=== PATIENT | female | born 1965 | race Hispanic/Latino ===

== ENCOUNTER 2018-01-16 10:26 | Observation (INO) | payer MEDICAID ==
[2018-01-16] MEDS ORDERED: Sodium Chloride 0.9% 1,000 ML IV STA (10:58)
--- NOTE | 2018-01-16 11:35 | ED PDOC ---
Arrival/HPI - General Chief Complaint: Abdominal Pain Time Seen by Provider: 01/16/18 10:54 Historian: Patient - History of Present Illness Narrative History of Present Illness (Text): 01/16/18 11:34 52yo female with history of chronic back pain present with complaint of LUQ abdominal burning sharp pain.Notes taht pain started on her diffuse lower back yesterday and then progressed to her LUQ area. Notes that her back is just sore , but she is having more pain on her LUQ area. States she took Ibuprofen 800mg with mild relieve [id number]. Notes that she have not had back pain for a while now. +Hematuria this morning. She denies recent trauma, nausea, vomiting, diarrhea, constipation, melena, hematemesis, fever, chills, chest pain, SOB, any other complaint. Past Medical History - Provider Review Nursing Documentation Reviewed: Yes - Infectious Disease Hx of Infectious Diseases: None - Tetanus Immunization Tetanus Immunization: Unknown - Reproductive Menopause: Yes - Past Medical History Past Medical History: No Previous - Cardiac Hx Cardiac Disorders: No - Pulmonary Hx Respiratory Disorders: No - Neurological Hx Neurological Disorder: No - HEENT Hx HEENT Disorder: No - Renal Hx Renal Disorder: No - Endocrine/Metabolic Hx Endocrine Disorders: No - Hematological/Oncological Hx Blood Disorders: No - Integumentary Hx Dermatological Disorder: No - Musculoskeletal/Rheumatological Hx Musculoskeletal Disorders: Yes Hx Back Pain: Yes - Gastrointestinal Hx Gastrointestinal Disorders: No - Genitourinary/Gynecological Hx Genitourinary Disorders: No Hx Sexually Transmitted Diseases: No - Psychiatric Hx Psychophysiologic Disorder: No Hx Substance Use: No - Past Surgical History Past Surgical History: No Previous - Surgical History Other/Comment: BACK - Anesthesia Hx Anesthesia: No - Suicidal Assessment Feels Threatened In Home Enviroment: No Family/Social History - Physician Review Nursing Documentation Reviewed: Yes Family/Social History: Unknown Family HX Smoking Status: Heavy Smoker > 10 Cigarettes Daily Hx Alcohol Use: Yes Hx Substance Use: No Allergies/Home Meds Allergies/Adverse Reactions: Allergies No Known Allergies Allergy (Verified 01/16/18 10:31) Home Medications: Home Meds Medication Instructions Recorded Confirmed Venlafaxine [Effexor XR] 75 mg PO DAILY 01/16/18 01/16/18 Review of Systems - Physician Review All systems were reviewed & negative as marked: Yes - Review of Systems Constitutional: Normal Eyes: Normal ENT: Normal Respiratory: Normal Cardiovascular: Normal Gastrointestinal: Abdominal Pain. absent: Constipation, Diarrhea, Nausea, Vomiting, Hematochezia, Hematemesis Genitourinary Female: Hematuria. absent: Dysuria, Frequency Musculoskeletal: Back Pain Skin: Normal Neurological: Normal Endocrine: Normal Hemo/Lymphatic: Normal Psychiatric: Normal Physical Exam Vital Signs Reviewed: Yes Vital Signs Temp Pulse Resp BP Pulse Ox 01/16/18 13:45 97.8 F 67 16 126/80 98 01/16/18 10:36 97.8 F 78 16 134/89 97 Temperature: Afebrile Blood Pressure: Normal Pulse: Regular Respiratory Rate: Normal Appearance: Positive for: Well-Appearing, Non-Toxic, Comfortable Pain Distress: None Mental Status: Positive for: Alert and Oriented X 3 - Systems Exam Head: Present: Atraumatic, Normocephalic Pupils: Present: PERRL Extroacular Muscles: Present: EOMI Conjunctiva: Present: Normal Mouth: Present: Moist Mucous Membranes Neck: Present: Normal Range of Motion Respiratory/Chest: Present: Clear to Auscultation, Good Air Exchange. No: Respiratory Distress, Accessory Muscle Use Cardiovascular: Present: Regular Rate and Rhythm, Normal S1, S2. No: Murmurs Abdomen: Present: Tenderness (LUQ tenderness), Normal Bowel Sounds, Other (Soft) . No: Distention, Peritoneal Signs, Rebound, Guarding, McBurney's Point Tender , Rovsing's Sign Present Back: Present: CVA Tenderness (B/L CVAT), Paraspinal Tenderness (Diffuse paralumbar tenderness). No: Midline Tenderness, Pain with Leg Raise Upper Extremity: Present: Normal Inspection. No: Cyanosis, Edema Lower Extremity: Present: Normal Inspection. No: Edema Neurological: Present: GCS=15, CN II-XII Intact, Speech Normal Skin: Present: Warm, Dry, Normal Color. No: Rashes Psychiatric: Present: Alert, Oriented x 3, Normal Insight, Normal Concentration Medical Decision Making ED Course and Treatment: 01/16/18 13:59 PT in ED for stated history. She appear physically in pain in ED. Leukocytosis, with large leuk and WBC noted in her UA. she had b/l CVAT. Levaquin was ordered. She will be admitted secondary to her continuous pain and lab findings Case was DW Dr. Barton and he accepted pt for admission. - Lab Interpretations Lab Results: 01/16/18 12:00 01/16/18 12:00 Lab Results 01/16/18 12:00: Sodium 140, Potassium 3.9, Chloride 108 H, Carbon Dioxide 22, Anion Gap 13, BUN 17, Creatinine 0.7, Est GFR ( Amer) > 60, Est GFR (Non- Af Amer) > 60, Random Glucose 109, Calcium 9.3, Total Bilirubin 0.5, AST 20, ALT 33, Alkaline Phosphatase 71, Total Protein 6.4, Albumin 3.5, Globulin 3.0, Albumin/Globulin Ratio 1.2, Lipase 56 01/16/18 12:00: Urine Color Yellow, Urine Appearance Clear, Urine pH 6.0, Ur Specific [place] 1.025, Urine Protein Trace H, Urine Glucose (UA) Negative, Urine Ketones Negative, Urine Blood Large H, Urine Nitrate Negative, Urine Bilirubin Negative, Urine Urobilinogen 0.2, Ur Leukocyte Esterase Large H, Urine RBC 25 - 30, Urine WBC 25 - 30, Ur Epithelial Cells 4 - 5, Amorphous Sediment Few, Urine Bacteria Many, Fine Granular Casts 0 - 2, Urine Other [place]yeast 01/16/18 12:00: PT 10.5, INR 0.91 L, APTT 27.0 01/16/18 12:00: WBC 14.9 H, RBC 4.13, Hgb 12.6, Hct 38.4, MCV 93.0, MCH 30.5, MCHC 32.8, RDW 13.9, Plt Count 220, MPV 12.3 H, Gran % 74.3 H, Lymph % (Auto) 20.4 L, [place] % (Auto) 3.8, Eos % (Auto) 1.2 L, Baso % (Auto) 0.3, Gran # 11.05 H , Lymph # (Auto) 3.0, [place] # (Auto) 0.6, Eos # (Auto) 0.2, Baso # (Auto) 0.05 - RAD Interpretation Radiology Orders: 01/16/18 10:58 ABD & PELVIS W/O PO OR IV CONT [CT] Stat - Medication Orders Current Medication Orders: Levofloxacin/Dextrose (Levaquin 500mg) 500 mg in 100 mls @ 100 mls/hr IVPB STAT STA PRN Reason: Protocol Stop: 01/16/18 14:54 Discontinued Medications Famotidine (Pepcid) 20 mg IVP STAT STA Stop: 01/16/18 10:59 Last Admin: 01/16/18 11:58 Dose: 20 mg IVP Administration Document 01/16/18 11:58 OCS (Rec: 01/16/18 11:58 OCS [id number]) Charges for Administration # of IVP Administrations 1 Sodium Chloride (Sodium Chloride 0.9%) 1,000 mls @ 1,000 mls/hr IV .Q1H STA Stop: 01/16/18 11:57 Last Admin: 01/16/18 11:56 Dose: 1,000 mls/hr eMAR Start Stop Document 01/16/18 11:56 OCS (Rec: 01/16/18 11:57 OCS [id number]) Intravenous Solution Start Date 01/16/18 Start Time 11:56 End Date 01/16/18 End time 12:56 Total Infusion Time 60 Ketorolac Tromethamine (Toradol) 30 mg IVP STAT STA Stop: 01/16/18 10:59 Last Admin: 01/16/18 11:57 Dose: 30 mg MAR Pain Assessment Document 01/16/18 11:57 OCS (Rec: 01/16/18 11:58 OCS [id number]) Pain Reassessment Is this a pain reassessment? Yes Sleep Is patient sleeping during reassessment? No Presence of Pain Presence of Pain Yes Pain Scale Used Pain Scale Used Numeric Location Left, Right or Bilateral Bilateral Pain Location Body Site Abdomen Back Description Description Constant Intensity of Pain at present 10 Pain Behavior Moaning Crying Irritability Rubbing Site Facial Grimacing Aggravating Factors ADL's IVP Administration Document 01/16/18 11:57 OCS (Rec: 01/16/18 11:58 OCS [id number]) Charges for Administration # of IVP Administrations 1 Morphine Sulfate (Morphine) 4 mg IVP STAT STA Stop: 01/16/18 13:55 Disposition/Present on Arrival - Present on Arrival Any Indicators Present on Arrival: No History of DVT/PE: No History of Uncontrolled Diabetes: No Urinary Catheter: No History of Decub. Ulcer: No History Surgical Site Infection Following: None - Disposition Have Diagnosis and Disposition been Completed?: Yes Diagnosis: Pyelonephritis Disposition: HOSPITALIZED Disposition Time: 13:55 Patient Plan: Admission Patient Problems: Current Active Problems Problem Status Onset Pyelonephritis Acute Condition: FAIR Discharge Instructions (ExitCare): Urinary Tract Infections in Adults, Kidney Infection Forms: [facility] [facility] (Spanish)
[2018-01-16 12:23] LABS: BASO # 0.05 K/mm3 (0.0-2.0); BASO % 0.3 % (0.0-3.0); EOS # 0.2 (0.0-0.7); EOS % 1.2 % (1.5-5.0); GRAN # 11.05 (1.4-6.5); GRAN % 74.3 % (50.0-68.0); HEMOGLOBIN 12.6 g/dL (12.0-16.0); LYMPH % 20.4 % (22.0-35.0); MEAN CORPUSCULAR HEMOGLOBIN 30.5 pg (25.0-35.0); MEAN CORPUSCULAR HGB CONC 32.8 g/dl (31.0-37.0); MEAN PLATELET VOLUME 12.3 fl (7.0-11.0); MONO # 0.6 (0.1-0.6); MONO % 3.8 % (1.0-6.0); RBC 4.13 10^6/uL (3.5-6.1); RED CELL DISTRIBUTION WIDTH 13.9 % (11.5-14.5); WHITE BLOOD COUNT 14.9 10^3/ul (4.5-11.0)
[2018-01-16 12:24] LABS: URINE BILIRUBIN NEGATIVE (NEGATIVE); URINE BLOOD LARGE (NEGATIVE); URINE GLUCOSE (UA) NEGATIVE (NEGATIVE); URINE LEUKOCYTE ESTERASE LARGE Leu/uL (NEGATIVE); URINE PROTEIN TRACE mg/dL (<30 mg/dL); URINE UROBILINOGEN 0.2 E.U./dL (<1 E.U./dL)
[2018-01-16 12:28] LABS: URINE APPEARANCE CLEAR (CLEAR); URINE COLOR YELLOW (YELLOW)
[2018-01-16 12:34] LABS: ALB/GLOB RATIO 1.2 (1.1-1.8); ALBUMIN 3.5 g/dL (3.0-4.8); ALT/SGPT 33 U/L (7-56); AST/SGOT 20 U/L (14-36); BLOOD UREA NITROGEN 17 mg/dL (7-21); CALCIUM 9.3 mg/dL (8.4-10.5); GFR AFRICAN-AMERICAN > 60; GFR NON-AFRICAN AMERICAN > 60; LIPASE 56 U/L (23-300)
[2018-01-16 12:36] LABS: URINE RBC 25 - 30 /hpf (0-2); URINE WBC 25 - 30 /hpf (0-6)
[2018-01-16 12:37] LABS: URINE AMORPHOUS SEDIMENT FEW; URINE BACTERIA MANY (NEG); URINE FINE GRANULAR CAST 0 - 2 /hpf (0-2)
[2018-01-16 12:38] LABS: INR 0.91 (0.93-1.08); PROTHROMBIN TIME 10.5 SECONDS (9.4-12.5)
--- NOTE | 2018-01-16 13:38 | CT ---
PROCEDURE: CT Abdomen and Pelvis without intravenous contrast HISTORY: LUQ pain COMPARISON: None. TECHNIQUE: Without contrast.. Contrast Dose: Radiation dose: Total exam DLP = 1077 mGy-cm. This CT exam was performed using one or more of the following dose reduction techniques: Automated exposure control, adjustment of the mA and/or kV according to patient size, and/or use of iterative reconstruction technique. FINDINGS: LOWER THORAX: Unremarkable. LIVER: Unremarkable. No gross lesion or ductal dilatation. GALLBLADDER AND BILE DUCTS: Unremarkable. PANCREAS: Unremarkable. No gross lesion or ductal dilatation. SPLEEN: Unremarkable. ADRENALS: Unremarkable. No mass. KIDNEYS AND URETERS: Unremarkable. No hydronephrosis. No solid mass. VASCULATURE: Unremarkable. No aortic aneurysm. BOWEL: Unremarkable. No obstruction. No gross mural thickening. APPENDIX: Unremarkable. Normal appendix. PERITONEUM: Unremarkable. No free fluid. No free air. LYMPH NODES: Unremarkable. No enlarged lymph nodes. BLADDER: Unremarkable. REPRODUCTIVE: Unremarkable. BONES: No acute fracture. OTHER FINDINGS: None. IMPRESSION: No acute findings
[2018-01-16] MEDS ORDERED: Morphine 4 mg/ml ISec IVP STA (13:54)
[2018-01-16] MEDS ORDERED: levoFLOXacin 500 mg in D5W 500 MG/100 ML BAG IVPB STA (13:55)
--- NOTE | 2018-01-16 15:28 | CP.PCM.HP ---
<Rigo Quiroz - Last Filed: 01/16/18 15:13> History of Present Illness - History of Present Illness History of Present Illness: Ms. Persaud is a 52 year old female with a past medical history significant for tobacco use, chronic low back pain and post-menopausal hot flashes who presents with bilateral flank pain. Patient states that last week while resting she suddenly felt a pain in both of her flanks that resolved with ice pack administration and ibuprofen. Patient was pain free until earlier today when she started to experience a more severe pain in both of her flanks with radiation to the LUQ of the abdomen. Patient does not associate this pain with exertion, food intake or positional changes. She reports that this pain is different from her chronic back pain. She describes the pain as a sharp burning pain that is intermittent with episodes lasting 30 seconds to a minute. She also endorses one episode of pink to red urine earlier this morning. She reports moderate relief with ibuprofen and flexeril. She denies ever having this type of pain before in the past. She denies any fever, chills, headache, changes in her vision, neck pain/stiffness, chest pain, palpitations, leg swelling, SOB, cough, wheezing, sputum, N/V/D/C, urine/bowel incontinence, skin changes, numbness/tingling/weakness of any extremity, vaginal lesions, or any new sexual partners. PMH: Tobacco use, chronic low back pain and post-menopausal hot flashes PSH: Denies Family History: Denies any history cardiac disease or cancer Social History: Smokes half pack per week, drinks alcohol socially and denies any illicit drug use Allergies: NKDA Home Medications: Flexeril, Ibuprofen and Effexor Present on Admission - Present on Admission Any Indicators Present on Admission: No Review of Systems - Review of Systems Review of Systems: As per HPI, otherwise negative Past Patient History - Infectious Disease Hx of Infectious Diseases: None - Tetanus Immunizations Tetanus Immunization: Unknown - Past Social History Smoking Status: Heavy Smoker > 10 Cigarettes Daily - CARDIAC Hx Cardiac Disorders: No - PULMONARY Hx Respiratory Disorders: No - NEUROLOGICAL Hx Neurological Disorder: No - HEENT Hx HEENT Problems: No - RENAL Hx Chronic Kidney Disease: No - ENDOCRINE/METABOLIC Hx Endocrine Disorders: No - HEMATOLOGICAL/ONCOLOGICAL Hx Blood Disorders: No - INTEGUMENTARY Hx Dermatological Problems: No - MUSCULOSKELETAL/RHEUMATOLOGICAL Hx Musculoskeletal Disorders: Yes Hx Back Pain: Yes - GASTROINTESTINAL Hx Gastrointestinal Disorders: No - GENITOURINARY/GYNECOLOGICAL Hx Genitourinary Disorders: No Hx Sexually Transmitted Disorders: No - PSYCHIATRIC Hx Psychophysiologic Disorder: No Hx Substance Use: No - SURGICAL HISTORY Other/Comment: BACK - ANESTHESIA Hx Anesthesia: No Meds Allergies/Adverse Reactions: Allergies Allergy/AdvReac Type Severity Reaction Status Date / Time No Known Allergies Allergy Verified 01/16/18 10:31 Physical Exam - Constitutional Appears: Non-toxic - Head Exam Head Exam: ATRAUMATIC, NORMOCEPHALIC - Eye Exam Eye Exam: EOMI, PERRL Pupil Exam: NORMAL ACCOMODATION - ENT Exam ENT Exam: Mucous Membranes Moist, Normal Exam - Neck Exam Neck exam: Positive for: Full Rom. Negative for: Lymphadenopathy - Respiratory Exam Respiratory Exam: Clear to Auscultation Bilateral, NORMAL BREATHING PATTERN. absent: Rales, Rhonchi, Wheezes, Respiratory Distress - Cardiovascular Exam Cardiovascular Exam: REGULAR RHYTHM, RRR, +S1, +S2. absent: Bradycardia, Tachycardia - GI/Abdominal Exam GI & Abdominal Exam: Normal Bowel Sounds, Soft, Tenderness (LUQ TTP). absent: Distended, Firm, Guarding, Rigid - Extremities Exam Extremities exam: Positive for: full ROM, normal capillary refill, normal inspection, pedal pulses present. Negative for: calf tenderness, joint swelling , pedal edema, tenderness - Back Exam Back exam: CVA tenderness (L), CVA tenderness (R), paraspinal tenderness (Mid- thoracic). absent: muscle spasm, NORMAL INSPECTION, rash noted, vertebral tenderness - Neurological Exam Neurological exam: Alert, CN II-XII Intact, Oriented x3 - Psychiatric Exam Psychiatric exam: Normal Affect, Normal Mood - Skin Skin Exam: Dry, Intact, Normal Color, Warm Results - Vital Signs Recent Vital Signs: Last Vital Signs Temp 97.8 F 01/16/18 13:45 Pulse 67 01/16/18 13:45 Resp 16 01/16/18 13:45 BP 126/80 01/16/18 13:45 Pulse Ox 98 01/16/18 13:45 - Labs Result Diagrams: 01/16/18 12:00 01/16/18 12:00 Labs: Laboratory Results - last 24 hr 01/16/18 01/16/18 01/16/18 12:00 12:00 12:00 WBC 14.9 H RBC 4.13 Hgb 12.6 Hct 38.4 MCV 93.0 MCH 30.5 MCHC 32.8 RDW 13.9 Plt Count 220 MPV 12.3 H Gran % 74.3 H Lymph % (Auto) 20.4 L [place] % (Auto) 3.8 Eos % (Auto) 1.2 L Baso % (Auto) 0.3 Gran # 11.05 H Lymph # (Auto) 3.0 [place] # (Auto) 0.6 Eos # (Auto) 0.2 Baso # (Auto) 0.05 PT 10.5 INR 0.91 L APTT 27.0 Sodium Potassium Chloride Carbon Dioxide Anion Gap BUN Creatinine Est GFR ( Amer) Est GFR (Non-Af Amer) Random Glucose Calcium Total Bilirubin AST ALT Alkaline Phosphatase Total Protein Albumin Globulin Albumin/Globulin Ratio Lipase Urine Color Yellow Urine Appearance Clear Urine pH 6.0 Ur Specific [place] 1.025 Urine Protein Trace H Urine Glucose (UA) Negative Urine Ketones Negative Urine Blood Large H Urine Nitrate Negative Urine Bilirubin Negative Urine Urobilinogen 0.2 Ur Leukocyte Esterase Large H Urine RBC 25 - 30 Urine WBC 25 - 30 Ur Epithelial Cells 4 - 5 Amorphous Sediment Few Urine Bacteria Many Fine Granular Casts 0 - 2 Urine Other Uyeast 01/16/18 12:00 WBC RBC Hgb Hct MCV MCH MCHC RDW Plt Count MPV Gran % Lymph % (Auto) [place] % (Auto) Eos % (Auto) Baso % (Auto) Gran # Lymph # (Auto) [place] # (Auto) Eos # (Auto) Baso # (Auto) PT INR APTT Sodium 140 Potassium 3.9 Chloride 108 H Carbon Dioxide 22 Anion Gap 13 BUN 17 Creatinine 0.7 Est GFR ( Amer) > 60 Est GFR (Non-Af Amer) > 60 Random Glucose 109 Calcium 9.3 Total Bilirubin 0.5 AST 20 ALT 33 Alkaline Phosphatase 71 Total Protein 6.4 Albumin 3.5 Globulin 3.0 Albumin/Globulin Ratio 1.2 Lipase 56 Urine Color Urine Appearance Urine pH Ur Specific [place] Urine Protein Urine Glucose (UA) Urine Ketones Urine Blood Urine Nitrate Urine Bilirubin Urine Urobilinogen Ur Leukocyte Esterase Urine RBC Urine WBC Ur Epithelial Cells Amorphous Sediment Urine Bacteria Fine Granular Casts Urine Other Assessment & Plan - Assessment and Plan (Free Text) Assessment: 52 year old female with a past medical history significant for tobacco use, chronic low back pain and post-menopausal hot flashes who presents with bilateral flank pain. She was found to have a UTI on UA but with no acute findings on CT Abdomen/Pelvis indicating pyelonephritis or nephrolithiasis. Plan: 1. Urinary Tract Infection -CT Abdomen/Pelvis showing no acute abnormalities -UA showing large LE, many bacteria and 25-30 WBC's -Leukocytosis to 14.9 but afebrile and without tachycardia or tachypnea -EKG and urine cultures pending -IV Levaquin 500mg daily -Toradol 15mg IM Q6 PRN and Flexeril 5mg TID PRN for pain control -Zofran 4mg Q4 PRN for N/V -Tylenol 650mg Q6 PRN for fever -Daily CBC to trend leukocytosis 2. Post-Menopausal Hot Flashes -Continue home Effexor GI Prophylaxis: Protonix DVT Prophylaxis: SCD's Patient seen and case discussed with attending, Dr. Barton. - Date & Time Date: 01/16/18 Time: 15:33 Decision To Admit - Pt Status Changed To: Hospital Disposition Of: Observation - . Bed Request Type: Med/Surg <Jerilyn Barton - Last Filed: 01/16/18 16:16> Results - Vital Signs Recent Vital Signs: Last Vital Signs Temp 97.8 F 01/16/18 13:45 Pulse 67 01/16/18 13:45 Resp 16 01/16/18 13:45 BP 126/80 01/16/18 13:45 Pulse Ox 98 01/16/18 13:45 - Labs Result Diagrams: 01/16/18 12:00 01/16/18 12:00 Attending/Attestation - Attestation I have personally seen and examined this patient.: Yes I have fully participated in the care of the patient.: Yes I have reviewed all pertinent clinical information: Yes Notes (Text): 01/16/18 16:13 52 year old female with past medical history of chronic back pain who presents with complaint of bilateral flank pain. She is found to have leukocytosis and UTI. CT abd/pelvis however is not suggestive of pyelonephritis or nephrolithiasis. Continue with iv antibiotics for UTI. Ucx is pending. Continue with flexeral prn for back pain with trial of toradol prn. Jerilyn Barton MD Hospitalist.
[2018-01-16 21:58] VITALS: BMI 34.0
[2018-01-16] MEDS ORDERED: Influenza Vaccine 60 mcg/0.5 mL SYR (4YR UP) IM ONE (21:58)
[2018-01-16] MEDS ORDERED: Pneumococcal 23-Valent Vaccine IM ONE (21:58)
[2018-01-17] MEDS: Pantoprazole 40 mg EC Tab PO SCH (05:38)
[2018-01-17 06:38] LABS: BASO # 0.03 K/mm3 (0.0-2.0); BASO % 0.3 % (0.0-3.0); EOS # 0.2 (0.0-0.7); EOS % 2.2 % (1.5-5.0); GRAN # 4.68 (1.4-6.5); GRAN % 48.6 % (50.0-68.0); HEMOGLOBIN 11.7 g/dL (12.0-16.0); LYMPH # 4.1 (1.2-3.4); LYMPH % 42.4 % (22.0-35.0); MEAN CELL VOLUME 93.4 fl (80.0-105.0); MEAN CORPUSCULAR HEMOGLOBIN 30.7 pg (25.0-35.0); MEAN CORPUSCULAR HGB CONC 32.9 g/dl (31.0-37.0); MEAN PLATELET VOLUME 12.5 fl (7.0-11.0); MONO # 0.6 (0.1-0.6); MONO % 6.5 % (1.0-6.0); RBC 3.81 10^6/uL (3.5-6.1); WHITE BLOOD COUNT 9.6 10^3/ul (4.5-11.0)
[2018-01-17 07:19] LABS: ALB/GLOB RATIO 1.1 (1.1-1.8); ALT/SGPT 27 U/L (7-56); AST/SGOT 23 U/L (14-36); BLOOD UREA NITROGEN 20 mg/dL (7-21); GFR AFRICAN-AMERICAN > 60; GFR NON-AFRICAN AMERICAN > 60
--- NOTE | 2018-01-17 08:37 | CARD ---
APPROVED REPORT EKG Measurement Heart [id number] <Conclusion> Normal sinus rhythm Normal ECG
[2018-01-17] MEDS: Venlafaxine 75 mg ER Cap PO SCH (09:45)
[2018-01-17] MEDS: levoFLOXacin 500 mg in D5W 500 MG/100 ML BAG IVPB SCH (09:46)
--- NOTE | 2018-01-17 12:58 | CP.PCM.PN ---
<RichieRigo - Last Filed: 01/17/18 12:53> Subjective - Date & Time of Evaluation Date of Evaluation: 01/17/18 Time of Evaluation: 12:53 - Subjective Subjective: Medicine Progress Note: Patient seen and assessed at bedside. No acute events were noted overnight by patient or nursing staff. Patient reports that she continues to have LUQ pain that she describes as a burning sensation. She reports that this has not improved since admission. She denies any pain with urination but does report an orgasmic feeling with urination, describing this a pleasurable sensation with associated tingling in her back. Patient has no other complaints otherwise including fevers, chills, headache, chest pain, palpitations, SOB, cough, wheezing, sputum, N/V/D/C, hematuria, pyuria, skin changes or any numbness/ tingling/weakness of any extremity. Objective - Vital Signs/Intake and Output Vital Signs (last 24 hours): Temp Pulse Resp BP Pulse Ox 97.8 F 70 18 134/85 99 01/16/18 21:36 01/16/18 21:36 01/16/18 21:36 01/16/18 21:36 01/16/18 17:17 Intake and Output: 01/17/18 01/17/18 06:59 18:59 Intake Total 960 Balance 960 - Medications Medications: Current Medications Acetaminophen (Tylenol 325mg Tab) 650 mg PO Q6H PRN PRN Reason: Fever >100.4 F Cyclobenzaprine HCl (Flexeril) 5 mg PO TID PRN PRN Reason: Pain, Mild (1-3) Last Admin: 01/16/18 17:42 Dose: 5 mg Levofloxacin/Dextrose (Levaquin 500mg) 500 mg in 100 mls @ 100 mls/hr IVPB DAILY [facility] PRN Reason: Protocol Last Admin: 01/17/18 09:46 Dose: 100 mls/hr Pantoprazole Sodium (Protonix Ec Tab) 40 mg PO 0600 [facility] Last Admin: 01/17/18 05:38 Dose: 40 mg Tramadol HCl (Ultram) 50 mg PO TID PRN PRN Reason: Pain, Mild (1-3) Venlafaxine HCl (Effexor Xr) 75 mg PO DAILY [facility] Last Admin: 01/17/18 09:45 Dose: 75 mg - Labs Labs: 02/28/18 05:45 01/17/18 05:45 PT 10.5 SECONDS (9.4-12.5) 01/16/18 12:00 INR 0.91 (0.93-1.08) L 01/16/18 12:00 APTT 27.0 Seconds (25.1-36.5) 01/16/18 12:00 - Constitutional Appears: Non-toxic, No Acute Distress - Head Exam Head Exam: ATRAUMATIC, NORMOCEPHALIC - Eye Exam Eye Exam: EOMI, PERRL Pupil Exam: NORMAL ACCOMODATION - ENT Exam ENT Exam: Mucous Membranes Moist - Neck Exam Neck Exam: Full ROM. absent: Lymphadenopathy - Respiratory Exam Respiratory Exam: Clear to Ausculation Bilateral, NORMAL BREATHING PATTERN. absent: Accessory Muscle Use, Rales, Rhonchi, Wheezes, Respiratory Distress - Cardiovascular Exam Cardiovascular Exam: REGULAR RHYTHM, RRR, +S1, +S2. absent: Tachycardia - GI/Abdominal Exam GI & Abdominal Exam: Guarding, Soft, Tenderness (TTP in LUQ), Normal Bowel Sounds. absent: Distended, Firm, Rebound - Extremities Exam Extremities Exam: Full ROM, Normal Capillary Refill. absent: Calf Tenderness, Joint Swelling, Pedal Edema, Tenderness - Back Exam Back Exam: CVA tenderness (L), CVA tenderness (R). absent: NORMAL INSPECTION - Neurological Exam Neurological Exam: Alert, Awake, CN II-XII Intact, Oriented x3 - Psychiatric Exam Psychiatric exam: Normal Affect, Normal Mood - Skin Skin Exam: Dry, Intact, Normal Color, Warm Assessment and Plan - Assessment and Plan (Free Text) Assessment: 52 year old female with a past medical history significant for tobacco use, chronic low back pain and post-menopausal hot flashes who presents with bilateral flank pain. She was found to have a UTI on UA but with no acute findings on CT Abdomen/Pelvis indicating pyelonephritis or nephrolithiasis. Patient was started on IV Levaquin and her leukocytosis has since resolved. Patient continues to endorse LUQ pain that is not typically associated with UTI. GI was consulted to further evaluate for gastrointestinal origin of this pain. Plan: 1. Urinary Tract Infection -CT Abdomen/Pelvis showing no acute abnormalities -UA showing large LE, many bacteria and 25-30 WBC's -Continue IV Levaquin 500mg daily (Day 2) -Tramadol 50mg PO TID PRN and Flexeril 5mg TID PRN for pain control -Zofran 4mg Q4 PRN for N/V -Tylenol 650mg Q6 PRN for fever -Daily CBC to trend leukocytosis 2. LUQ Pain -EKG showing normal sinus rhythm -Lipase within normal limits -Discontinue NSAID's for pain control -Continue pain control as above -GI consulted, all recommendations appreciated 3. Post-Menopausal Hot Flashes -Continue home Effexor GI Prophylaxis: Protonix DVT Prophylaxis: SCD's Diet: Heart Healthy Patient seen and case discussed with attending, Dr. Barton. <Jerilyn Barton - Last Filed: 01/17/18 15:27> Objective - Vital Signs/Intake and Output Vital Signs (last 24 hours): Temp Pulse Resp BP Pulse Ox 97.7 F 68 20 127/81 97 01/17/18 06:00 01/17/18 06:00 01/17/18 06:00 01/17/18 06:00 01/17/18 06:00 Intake and Output: 01/17/18 01/17/18 06:59 18:59 Intake Total 960 Balance 960 - Medications Medications: Current Medications Acetaminophen (Tylenol 325mg Tab) 650 mg PO Q6H PRN PRN Reason: Fever >100.4 F Cyclobenzaprine HCl (Flexeril) 5 mg PO TID PRN PRN Reason: Pain, Mild (1-3) Last Admin: 01/16/18 17:42 Dose: 5 mg Docusate Sodium (Colace) 100 mg PO DAILY [facility] Last Admin: 01/17/18 15:21 Dose: 100 mg Levofloxacin/Dextrose (Levaquin 500mg) 500 mg in 100 mls @ 100 mls/hr IVPB DAILY [facility] PRN Reason: Protocol Last Admin: 01/17/18 09:46 Dose: 100 mls/hr Pantoprazole Sodium (Protonix Ec Tab) 40 mg PO 0600 [facility] Last Admin: 01/17/18 05:38 Dose: 40 mg Tramadol HCl (Ultram) 50 mg PO TID PRN PRN Reason: Pain, Mild (1-3) Last Admin: 01/17/18 15:21 Dose: 50 mg Venlafaxine HCl (Effexor Xr) 75 mg PO DAILY [facility] Last Admin: 01/17/18 09:45 Dose: 75 mg - Labs Labs: 01/17/18 05:45 01/17/18 05:45 PT 10.5 SECONDS (9.4-12.5) 01/16/18 12:00 INR 0.91 (0.93-1.08) L 01/16/18 12:00 APTT 27.0 Seconds (25.1-36.5) 01/16/18 12:00 Attending/Attestation - Attestation I have personally seen and examined this patient.: Yes I have fully participated in the care of the patient.: Yes I have reviewed all pertinent clinical information, including history, physical exam and plan: Yes Notes (Text): 01/17/18 15:24 52 year old female with past medical history of chronic back pain who presented with complaint of bilateral flank pain. CT abd/pelvis was not suggestive of pyelonephritis or nephrolithiasis. Ucx is pending. She was found to have leukocytosis and UTI and started on iv antibiotics, toradol and flexeral with improvement of symptoms. Today she continues to have significant left upper quadrant pain. ?Gastritis. Will switch toradol prn for tramadol. Continue with protonix. GI evaluation is requested to consider upper endoscopy. Jerilyn Barton MD Hospitalist.
--- NOTE | 2018-01-17 16:53 | CP.PCM.CON ---
<Gokul Marin - Last Filed: 01/17/18 16:48> History of Present Illness - History of Present Illness History of Present Illness: GI Consult Note - Dr. Brandon HPI: 52 F with a PMHx of chronic low back pain and tobacco abuse that presented to [facility] with complaints of bilateral flank pain and LUQ abdominal pain. Pt states that she often uses ibuprofen for pain relief, sometimes taking 3-5 a week of 800mg a week. Patient does not associate this pain with exertion, food intake or positional changes. Pt described her pain as an intermittent sharp burning pain that has no aggravating factors and is alleviated with ibuprofen and flexeril. Pt was seen and examined at bedside. Pt has been moving bowels and bladder regularly, tolerating po intake. Pt denied fevers, chills, headache , chest pain, palpitations, SOB, cough, wheezing, sputum, N/V/D/C, hematuria, pyuria, skin changes or any numbness/tingling/weakness of any extremity. PMHx: Tobacco use, chronic low back pain and post-menopausal hot flashes PSHx: Denies Family History: Denies any history cardiac disease or cancer Social History: Smokes half pack per week, drinks alcohol socially and denies any illicit drug use Allergies: NKDA Home Medications: Flexeril, Ibuprofen and Effexor Review of Systems - Review of Systems Review of Systems: as per HPI otherwise negative Past Patient History - Infectious Disease Hx of Infectious Diseases: None - Tetanus Immunizations Tetanus Immunization: Unknown - Past Social History Smoking Status: Current Some Days Smoker - CARDIAC Hx Cardiac Disorders: No - PULMONARY Hx Respiratory Disorders: Yes (SMOKES HALF A PACK A WEEK OF CIGARETTES) - NEUROLOGICAL Hx Neurological Disorder: No - HEENT Hx HEENT Problems: No - RENAL Hx Chronic Kidney Disease: Yes Hx Pyelonephritis: Yes (01-16-18) - ENDOCRINE/METABOLIC Hx Endocrine Disorders: No - HEMATOLOGICAL/ONCOLOGICAL Hx Blood Disorders: No - INTEGUMENTARY Hx Dermatological Problems: No - MUSCULOSKELETAL/RHEUMATOLOGICAL Hx Musculoskeletal Disorders: Yes (SCIATICA) Hx Back Pain: Yes Hx Falls: No - GASTROINTESTINAL Hx Gastrointestinal Disorders: No - GENITOURINARY/GYNECOLOGICAL Hx Genitourinary Disorders: Yes Hx Sexually Transmitted Disorders: No Hx Urinary Tract Infection: Yes (01-16-18) - PSYCHIATRIC Hx Psychophysiologic Disorder: No Hx Substance Use: No - SURGICAL HISTORY Hx Surgeries: Yes (DISCKECTOMY X2) Other/Comment: BACK - ANESTHESIA Hx Anesthesia: No Meds Allergies/Adverse Reactions: Allergies Allergy/AdvReac Type Severity Reaction Status Date / Time No Known Allergies Allergy Verified 01/16/18 18:34 - Medications Medications: Current Medications Acetaminophen (Tylenol 325mg Tab) 650 mg PO Q6H PRN PRN Reason: Fever >100.4 F Cyclobenzaprine HCl (Flexeril) 5 mg PO TID PRN PRN Reason: Pain, Mild (1-3) Last Admin: 01/16/18 17:42 Dose: 5 mg Diphenhydramine HCl (Benadryl) 25 mg PO HS PRN PRN Reason: Insomnia Docusate Sodium (Colace) 100 mg PO DAILY [facility] Last Admin: 01/17/18 15:21 Dose: 100 mg Levofloxacin/Dextrose (Levaquin 500mg) 500 mg in 100 mls @ 100 mls/hr IVPB DAILY [facility] PRN Reason: Protocol Last Admin: 01/17/18 09:46 Dose: 100 mls/hr Pantoprazole Sodium (Protonix Ec Tab) 40 mg PO 0600 [facility] Last Admin: 01/17/18 05:38 Dose: 40 mg Tramadol HCl (Ultram) 50 mg PO TID PRN PRN Reason: Pain, Mild (1-3) Last Admin: 01/17/18 15:21 Dose: 50 mg Venlafaxine HCl (Effexor Xr) 75 mg PO DAILY [facility] Last Admin: 01/17/18 09:45 Dose: 75 mg Physical Exam - Constitutional Appears: No Acute Distress - Head Exam Head Exam: ATRAUMATIC, NORMAL INSPECTION, NORMOCEPHALIC - Eye Exam Eye Exam: EOMI, Normal appearance, PERRL - ENT Exam ENT Exam: Mucous Membranes Moist, Normal Exam - Respiratory Exam Respiratory Exam: Clear to Auscultation Bilateral, NORMAL BREATHING PATTERN - Cardiovascular Exam Cardiovascular Exam: REGULAR RHYTHM - GI/Abdominal Exam GI & Abdominal Exam: Normal Bowel Sounds, Soft, Tenderness Additional comments: LUQ tenderness to palpation - Back Exam Back exam: CVA tenderness (L), CVA tenderness (R) - Neurological Exam Neurological exam: Alert, CN II-XII Intact, Normal Gait, Oriented x3, Reflexes Normal - Psychiatric Exam Psychiatric exam: Normal Affect, Normal Mood - Skin Skin Exam: Dry, Intact, Normal Color, Warm Results - Vital Signs Recent Vital Signs: Last Vital Signs Temp 97.7 F 01/17/18 06:00 Pulse 68 01/17/18 06:00 Resp 20 01/17/18 06:00 BP 127/81 01/17/18 06:00 Pulse Ox 97 01/17/18 06:00 - Labs Result Diagrams: 01/17/18 05:45 01/17/18 05:45 Labs: Laboratory Results - last 24 hr 01/17/18 01/17/18 05:45 05:45 WBC 9.6 D RBC 3.81 Hgb 11.7 L Hct 35.6 L MCV 93.4 MCH 30.7 MCHC 32.9 RDW 14.0 Plt Count 204 MPV 12.5 H Gran % 48.6 L Lymph % (Auto) 42.4 H [place] % (Auto) 6.5 H Eos % (Auto) 2.2 Baso % (Auto) 0.3 Gran # 4.68 Lymph # (Auto) 4.1 H [place] # (Auto) 0.6 Eos # (Auto) 0.2 Baso # (Auto) 0.03 Sodium 139 Potassium 3.7 Chloride 110 H Carbon Dioxide 25 Anion Gap 8 L BUN 20 Creatinine 0.7 Est GFR ( Amer) > 60 Est GFR (Non-Af Amer) > 60 Random Glucose 118 H Calcium 9.0 Total Bilirubin 0.2 AST 23 ALT 27 Alkaline Phosphatase 65 Total Protein 5.6 L Albumin 3.0 Globulin 2.6 Albumin/Globulin Ratio 1.1 Assessment & Plan - Assessment and Plan (Free Text) Assessment: 52 F with a PMHx of chronic low back pain and tobacco abuse presented to [facility] with complaints of LUQ abdominal pain. UTI on levaquin CT Abdomen/Pelvis indicating pyelonephritis or nephrolithiasis. US ABD to assess LUQ pain, likely 2/2 NSAID use Avoid NSAIDs Continue PPI Possible EGD in AM NPO after midnight Discussed with Dr. Brandon <Augustin Brandon V - Last Filed: 01/17/18 23:47> Meds - Medications Medications: Current Medications Acetaminophen (Tylenol 325mg Tab) 650 mg PO Q6H PRN PRN Reason: Fever >100.4 F Cyclobenzaprine HCl (Flexeril) 5 mg PO TID PRN PRN Reason: Pain, Mild (1-3) Last Admin: 01/16/18 17:42 Dose: 5 mg Diphenhydramine HCl (Benadryl) 25 mg PO HS PRN PRN Reason: Insomnia Docusate Sodium (Colace) 100 mg PO DAILY [facility] Last Admin: 01/17/18 15:21 Dose: 100 mg Levofloxacin/Dextrose (Levaquin 500mg) 500 mg in 100 mls @ 100 mls/hr IVPB DAILY [facility] PRN Reason: Protocol Last Admin: 01/17/18 09:46 Dose: 100 mls/hr Pantoprazole Sodium (Protonix Ec Tab) 40 mg PO 0600 [facility] Last Admin: 01/17/18 05:38 Dose: 40 mg Tramadol HCl (Ultram) 50 mg PO TID PRN PRN Reason: Pain, Mild (1-3) Last Admin: 01/17/18 15:21 Dose: 50 mg Venlafaxine HCl (Effexor Xr) 75 mg PO DAILY [facility] Last Admin: 01/17/18 09:45 Dose: 75 mg Results - Vital Signs Recent Vital Signs: Last Vital Signs Temp 98.2 F 01/17/18 16:00 Pulse 61 01/17/18 16:00 Resp 18 01/17/18 16:00 BP 120/73 01/17/18 16:00 Pulse Ox 99 01/17/18 16:00 - Labs Result Diagrams: 01/17/18 05:45 01/17/18 05:45 Labs: Laboratory Results - last 24 hr 01/17/18 01/17/18 05:45 05:45 WBC 9.6 D RBC 3.81 Hgb 11.7 L Hct 35.6 L MCV 93.4 MCH 30.7 MCHC 32.9 RDW 14.0 Plt Count 204 MPV 12.5 H Gran % 48.6 L Lymph % (Auto) 42.4 H [place] % (Auto) 6.5 H Eos % (Auto) 2.2 Baso % (Auto) 0.3 Gran # 4.68 Lymph # (Auto) 4.1 H [place] # (Auto) 0.6 Eos # (Auto) 0.2 Baso # (Auto) 0.03 Sodium 139 Potassium 3.7 Chloride 110 H Carbon Dioxide 25 Anion Gap 8 L BUN 20 Creatinine 0.7 Est GFR ( Amer) > 60 Est GFR (Non-Af Amer) > 60 Random Glucose 118 H Calcium 9.0 Total Bilirubin 0.2 AST 23 ALT 27 Alkaline Phosphatase 65 Total Protein 5.6 L Albumin 3.0 Globulin 2.6 Albumin/Globulin Ratio 1.1 Attending/Attestation - Attestation I have personally seen and examined this patient.: Yes I have fully participated in the care of the patient.: Yes I have reviewed all pertinent clinical information: Yes Notes (Text): This is an addendum to GI consult report dictated by the Scientologist.The patient was seen and examined earlier. Medical records, lab studies, imagings were reviewed. Last 24 hours events reviewed. Agreed with the above treatment plan as outlined in Scientologist 's notes the with the addition of the following On examination tenderness epigastric are in addition to flank tenderness history of NSAID use Patient would benefit from endoscopic evaluation to rule out peptic ulcer disease Discussed with the patient and patient's boyfriend was at bedside and would schedule the patient in the a.m. for EGD 01/17/18 23:41 01/17/18 23:46
--- NOTE | 2018-01-17 21:39 | US ---
EXAM: US Abdomen Complete CLINICAL HISTORY: 52 years old, female; Pain; Abdominal pain; Flank; Left upper quadrant (luq); Additional info: Luq pain, gastritis TECHNIQUE: Real-time ultrasound of the abdomen (complete) with image documentation. COMPARISON: CT - ABD PELVIS W/O PO OR IV CONT 2018-01-16 13:15 FINDINGS: Liver: Fatty infiltration. No mass. No intrahepatic ductal dilatation. Gallbladder: No gallstones. No wall thickening. No pericholecystic fluid. No sonographic Morgan's sign. Common bile duct: No dilatation. No stones. Pancreas: Unremarkable as visualized. Kidneys: Normal echogenicity. No hydronephrosis. Spleen: No splenomegaly. Aorta: Unremarkable. No aneurysm. Inferior vena cava: Unremarkable. Free fluid: No significant free fluid. IMPRESSION: 1.No acute findings. 2.Non-acute findings are described above.
[2018-01-18] MEDS: Pantoprazole 40 mg EC Tab PO SCH (05:04)
[2018-01-18] MEDS ORDERED: Propofol 10 mg/ml Inj (20 ML) ONE (09:01)
[2018-01-18] MEDS ORDERED: Sodium Chloride 0.9% 1,000 ML IV SCH (09:30)
[2018-01-18] MEDS: Venlafaxine 75 mg ER Cap PO SCH (09:35)
[2018-01-18] MEDS: levoFLOXacin 500 mg in D5W 500 MG/100 ML BAG IVPB SCH (09:35)
[2018-01-18 09:40] VITALS: RESP 14; TEMP 98
[2018-01-18 09:59] VITALS: O2SAT 99
[2018-01-18 10:01] VITALS: BP 124/82; PULSE 66
--- NOTE | 2018-01-18 19:14 | CP.PCM.DIS ---
<Rigo Quiroz - Last Filed: 01/18/18 19:09> Provider - Provider Date of Admission: 01/16/18 15:04 Attending physician: Jerilyn Barton MD Consults: RONEN: Aleksandr Time Spent in preparation of Discharge (in minutes): 41 Hospital Course - Lab Results Lab Results: Most Recent Lab Values WBC 9.6 10^3/ul (4.5-11.0) D 01/17/18 05:45 RBC 3.81 10^6/uL (3.5-6.1) 01/17/18 05:45 Hgb 11.7 g/dL (12.0-16.0) L 01/17/18 05:45 Hct 35.6 % (36.0-48.0) L 01/17/18 05:45 MCV 93.4 fl (80.0-105.0) 01/17/18 05:45 MCH 30.7 pg (25.0-35.0) 01/17/18 05:45 MCHC 32.9 g/dl (31.0-37.0) 01/17/18 05:45 RDW 14.0 % (11.5-14.5) 01/17/18 05:45 Plt Count 204 10^3/uL (120.0-450.0) 01/17/18 05:45 MPV 12.5 fl (7.0-11.0) H 01/17/18 05:45 Gran % 48.6 % (50.0-68.0) L 01/17/18 05:45 Lymph % (Auto) 42.4 % (22.0-35.0) H 01/17/18 05:45 [place] % (Auto) 6.5 % (1.0-6.0) H 01/17/18 05:45 Eos % (Auto) 2.2 % (1.5-5.0) 01/17/18 05:45 Baso % (Auto) 0.3 % (0.0-3.0) 01/17/18 05:45 Gran # 4.68 (1.4-6.5) 01/17/18 05:45 Lymph # (Auto) 4.1 (1.2-3.4) H 01/17/18 05:45 [place] # (Auto) 0.6 (0.1-0.6) 01/17/18 05:45 Eos # (Auto) 0.2 (0.0-0.7) 01/17/18 05:45 Baso # (Auto) 0.03 K/mm3 (0.0-2.0) 01/17/18 05:45 PT 10.5 SECONDS (9.4-12.5) 01/16/18 12:00 INR 0.91 (0.93-1.08) L 01/16/18 12:00 APTT 27.0 Seconds (25.1-36.5) 01/16/18 12:00 Sodium 139 mmol/L (132-148) 01/17/18 05:45 Potassium 3.7 mmol/L (3.6-5.0) 01/17/18 05:45 Chloride 110 mmol/L (98-107) H 01/17/18 05:45 Carbon Dioxide 25 mmol/L (21-33) 01/17/18 05:45 Anion Gap 8 (10-20) L 01/17/18 05:45 BUN 20 mg/dL (7-21) 01/17/18 05:45 Creatinine 0.7 mg/dl (0.7-1.2) 01/17/18 05:45 Est GFR ( Amer) > 60 01/17/18 05:45 Est GFR (Non-Af Amer) > 60 01/17/18 05:45 Random Glucose 118 mg/dL (70-110) H 01/17/18 05:45 Calcium 9.0 mg/dL (8.4-10.5) 01/17/18 05:45 Total Bilirubin 0.2 mg/dL (0.2-1.3) 01/17/18 05:45 AST 23 U/L (14-36) 01/17/18 05:45 ALT 27 U/L (7-56) 01/17/18 05:45 Alkaline Phosphatase 65 U/L (38-126) 01/17/18 05:45 Total Protein 5.6 g/dL (5.8-8.3) L 01/17/18 05:45 Albumin 3.0 g/dL (3.0-4.8) 01/17/18 05:45 Globulin 2.6 gm/dL 01/17/18 05:45 Albumin/Globulin Ratio 1.1 (1.1-1.8) 01/17/18 05:45 Lipase 56 U/L (23-300) 01/16/18 12:00 Urine Color Yellow (YELLOW) 01/16/18 12:00 Urine Appearance Clear (CLEAR) 01/16/18 12:00 Urine pH 6.0 (4.7-8.0) 01/16/18 12:00 Ur Specific [place] 1.025 (1.005-1.035) 01/16/18 12:00 Urine Protein Trace mg/dL (<30 mg/dL) H 01/16/18 12:00 Urine Glucose (UA) Negative mg/dL (NEGATIVE) 01/16/18 12:00 Urine Ketones Negative mg/dL (NEGATIVE) 01/16/18 12:00 Urine Blood Large (NEGATIVE) H 01/16/18 12:00 Urine Nitrate Negative (NEGATIVE) 01/16/18 12:00 Urine Bilirubin Negative (NEGATIVE) 01/16/18 12:00 Urine Urobilinogen 0.2 E.U./dL (<1 E.U./dL) 01/16/18 12:00 Ur Leukocyte Esterase Large [place]/uL (NEGATIVE) H 01/16/18 12:00 Urine RBC 25 - 30 /hpf (0-2) 01/16/18 12:00 Urine WBC 25 - 30 /hpf (0-6) 01/16/18 12:00 Ur Epithelial Cells 4 - 5 /hpf (0-5) 01/16/18 12:00 Amorphous Sediment Few 01/16/18 12:00 Urine Bacteria Many (NEG) 01/16/18 12:00 Fine Granular Casts 0 - 2 /hpf (0-2) 01/16/18 12:00 Urine Other Uyeast 01/16/18 12:00 - Hospital Course Hospital Course: 52 year old female with a past medical history significant for tobacco use, chronic low back pain and post-menopausal hot flashes who presents with bilateral flank pain. She was found to have a UTI on UA but with no acute findings on CT Abdomen/Pelvis indicating pyelonephritis or nephrolithiasis. She was also noted to have a leukocytosis on CBC. Patient was started on IV Levaquin and her leukocytosis resolved. Patient continues to endorse LUQ pain that is not typically associated with UTI. GI was consulted to further evaluate for gastrointestinal origin of this pain. She had an abdominal ultrasound that was negative for any acute findings. She was taken for EGD which found esophagitis, gastritis and hiatal hernia. She was discharged home on 01/18/2018 with instructions as follows: Please follow up with your primary care doctor within one to two weeks for post hospitalization follow up. Please complete a 4 day course of Levaquin. Information has been provided about this medication. You have been started on a medication called Protonix, which will help protect the lining of your stomach. Information has been provided about this medication. Biopsies have been taken from the lining of your stomach to evaluate the presence of a bacteria that can cause gastritis. The results will be available within several days. You should be contacted by the [facility] [place] with results if they are abnormal. Please avoid taking NSAID's for pain relief. Medications such as Tylenol are appropriate for pain control. Should you have any questions regarding a medication for pain relief, please seek consultation from the pharmacist. Recommendations and information for a diet to prevent gastritis has been provided. Please take all medications as prescribed. If your symptoms should worsen or persist, please seek emergency medical attention. - Date & Time of H&P Date of H&P: 02/13/18 Time of H&P: 15:13 Discharge Exam - Head Exam Head Exam: ATRAUMATIC, NORMAL INSPECTION, NORMOCEPHALIC - Eye Exam Eye Exam: EOMI, PERRL Pupil Exam: NORMAL ACCOMODATION - ENT Exam ENT Exam: Mucous Membranes Moist, Normal Exam - Neck Exam Neck exam: Full Rom, Normal Inspection - Respiratory Exam Respiratory Exam: Clear to PA & Lateral, NORMAL BREATHING PATTERN, UNREMARKABLE - Cardiovascular Exam Cardiovascular Exam: REGULAR RHYTHM - GI/Abdominal Exam GI & Abdominal Exam: Normal Bowel Sounds, Tenderness (Minimal TTP in LUQ), Unremarkable - Extremities Exam Extremities exam: full ROM, normal capillary refill, normal inspection, pedal pulses present - Back Exam Back exam: NORMAL INSPECTION - Neurological Exam Neurological exam: Alert, CN II-XII Intact, Normal Gait, Oriented x3, Reflexes Normal - Psychiatric Exam Psychiatric exam: Normal Affect, Normal Mood - Skin Skin Exam: Dry, Intact, Normal Color, Warm Discharge Plan - Discharge Medications Prescriptions: levoFLOXacin [Levaquin] 500 mg PO DAILY #4 tab Pantoprazole [Protonix EC Tab] 40 mg PO DAILY #14 ect - Follow Up Plan Condition: FAIR Disposition: HOME/ ROUTINE Instructions: Gastric Ulcer (DC), Levofloxacin (Systemic), Pantoprazole, Ulcer and Gastritis Diet, Urinary Tract Infection in Women (DC) Additional Instructions: Please follow up with your primary care doctor within one to two weeks for post hospitalization follow up. Please complete a 4 day course of Levaquin. Information has been provided about this medication. You have been started on a medication called Protonix, which will help protect the lining of your stomach. Information has been provided about this medication. Biopsies have been taken from the lining of your stomach to evaluate the presence of a bacteria that can cause gastritis. The results will be available within several days. You should be contacted by the [facility] [place] with results if they are abnormal. Please avoid taking NSAID's for pain relief. Medications such as Tylenol are appropriate for pain control. Should you have any questions regarding a medication for pain relief, please seek consultation from the pharmacist. Recommendations and information for a diet to prevent gastritis has been provided. Please take all medications as prescribed. If your symptoms should worsen or persist, please seek emergency medical attention. Referrals: Augustin Brandon MD [Medical Doctor] - <Jerilyn Barton - Last Filed: 01/18/18 21:27> Provider - Provider Date of Admission: 01/16/18 15:04 Attending physician: Jerilyn Barton MD Hospital Course - Lab Results Lab Results: Most Recent Lab Values WBC 9.6 10^3/ul (4.5-11.0) D 01/17/18 05:45 RBC 3.81 10^6/uL (3.5-6.1) 01/17/18 05:45 Hgb 11.7 g/dL (12.0-16.0) L 01/17/18 05:45 Hct 35.6 % (36.0-48.0) L 01/17/18 05:45 MCV 93.4 fl (80.0-105.0) 01/17/18 05:45 MCH 30.7 pg (25.0-35.0) 01/17/18 05:45 MCHC 32.9 g/dl (31.0-37.0) 01/17/18 05:45 RDW 14.0 % (11.5-14.5) 01/17/18 05:45 Plt Count 204 10^3/uL (120.0-450.0) 01/17/18 05:45 MPV 12.5 fl (7.0-11.0) H 01/17/18 05:45 Gran % 48.6 % (50.0-68.0) L 01/17/18 05:45 Lymph % (Auto) 42.4 % (22.0-35.0) H 01/17/18 05:45 [place] % (Auto) 6.5 % (1.0-6.0) H 01/17/18 05:45 Eos % (Auto) 2.2 % (1.5-5.0) 01/17/18 05:45 Baso % (Auto) 0.3 % (0.0-3.0) 01/17/18 05:45 Gran # 4.68 (1.4-6.5) 01/17/18 05:45 Lymph # (Auto) 4.1 (1.2-3.4) H 01/17/18 05:45 [place] # (Auto) 0.6 (0.1-0.6) 01/17/18 05:45 Eos # (Auto) 0.2 (0.0-0.7) 01/17/18 05:45 Baso # (Auto) 0.03 K/mm3 (0.0-2.0) 01/17/18 05:45 PT 10.5 SECONDS (9.4-12.5) 01/16/18 12:00 INR 0.91 (0.93-1.08) L 01/16/18 12:00 APTT 27.0 Seconds (25.1-36.5) 01/16/18 12:00 Sodium 139 mmol/L (132-148) 01/17/18 05:45 Potassium 3.7 mmol/L (3.6-5.0) 01/17/18 05:45 Chloride 110 mmol/L (98-107) H 01/17/18 05:45 Carbon Dioxide 25 mmol/L (21-33) 01/17/18 05:45 Anion Gap 8 (10-20) L 01/17/18 05:45 BUN 20 mg/dL (7-21) 01/17/18 05:45 Creatinine 0.7 mg/dl (0.7-1.2) 01/17/18 05:45 Est GFR ( Amer) > 60 01/17/18 05:45 Est GFR (Non-Af Amer) > 60 01/17/18 05:45 Random Glucose 118 mg/dL (70-110) H 01/17/18 05:45 Calcium 9.0 mg/dL (8.4-10.5) 01/17/18 05:45 Total Bilirubin 0.2 mg/dL (0.2-1.3) 01/17/18 05:45 AST 23 U/L (14-36) 01/17/18 05:45 ALT 27 U/L (7-56) 01/17/18 05:45 Alkaline Phosphatase 65 U/L (38-126) 01/17/18 05:45 Total Protein 5.6 g/dL (5.8-8.3) L 01/17/18 05:45 Albumin 3.0 g/dL (3.0-4.8) 01/17/18 05:45 Globulin 2.6 gm/dL 01/17/18 05:45 Albumin/Globulin Ratio 1.1 (1.1-1.8) 01/17/18 05:45 Lipase 56 U/L (23-300) 01/16/18 12:00 Urine Color Yellow (YELLOW) 01/16/18 12:00 Urine Appearance Clear (CLEAR) 01/16/18 12:00 Urine pH 6.0 (4.7-8.0) 01/16/18 12:00 Ur Specific [place] 1.025 (1.005-1.035) 01/16/18 12:00 Urine Protein Trace mg/dL (<30 mg/dL) H 01/16/18 12:00 Urine Glucose (UA) Negative mg/dL (NEGATIVE) 01/16/18 12:00 Urine Ketones Negative mg/dL (NEGATIVE) 01/16/18 12:00 Urine Blood Large (NEGATIVE) H 01/16/18 12:00 Urine Nitrate Negative (NEGATIVE) 01/16/18 12:00 Urine Bilirubin Negative (NEGATIVE) 01/16/18 12:00 Urine Urobilinogen 0.2 E.U./dL (<1 E.U./dL) 01/16/18 12:00 Ur Leukocyte Esterase Large [place]/uL (NEGATIVE) H 01/16/18 12:00 Urine RBC 25 - 30 /hpf (0-2) 01/16/18 12:00 Urine WBC 25 - 30 /hpf (0-6) 01/16/18 12:00 Ur Epithelial Cells 4 - 5 /hpf (0-5) 01/16/18 12:00 Amorphous Sediment Few 01/16/18 12:00 Urine Bacteria Many (NEG) 01/16/18 12:00 Fine Granular Casts 0 - 2 /hpf (0-2) 01/16/18 12:00 Urine Other [place] 01/16/18 12:00 Attending/Attestation - Attestation I have personally seen and examined this patient.: Yes I have fully participated in the care of the patient.: Yes I have reviewed all pertinent clinical information, including history, physical exam and plan: Yes Notes (Text): 01/18/18 21:24 52 year old female with past medical history of chronic back pain who presented with complaint of bilateral flank pain. CT abd/pelvis was not suggestive of pyelonephritis or nephrolithiasis. She was started on antibiotics for E coli UTI. Her leukocyotis and symptoms improved except for significant LUQ pain for which she was seen by GI. She underwent EGD today which showed gastritis and esophagitis. Her pain has overall improved today. Patient is discharged home to follow up with pmd. Continue with protonix. Avoid NSAIDs. Counselled on GERD precautions and diet modifications. Continue with antibiotics for UTI. Jerilyn Barton MD Hospitalist.
[2018-01-19] MEDS ORDERED: levoFLOXacin 500 MG TAB PO SCH (10:00)
== END 2018-01-18 14:42 | disposition home or self-care (01) ==
LOC: ED 10:26 → INTOOBSV 15:04 → ERH 15:04 → 3RNO 17:19
PROVIDERS: ADMIT Hospitalist; ATTEND Internal Medicine
DX: N39.0 Urinary tract infection, site not specified (principal); B96.20 Unspecified Escherichia coli [E. coli] as the cause of diseases classified elsewhere; K20.9 Esophagitis, unspecified; K29.50 Unspecified chronic gastritis without bleeding; N95.1 Menopausal and female climacteric states; G89.29 Other chronic pain; M54.5 Low back pain; K44.9 Diaphragmatic hernia without obstruction or gangrene; F17.210 Nicotine dependence, cigarettes, uncomplicated
CPT/HCPCS: 36415; 43239; 74176; 76700; 80053; 81001; 83690; 85025; 85610; 85730; 87086; 87181; 88305; 88342; 93005; 96361; 96365; 96375; 99285; G0378; J1885; J2270; J2704; J7040